=== PATIENT | male | born 1935 | race Caucasian/White ===

== ENCOUNTER 2022-11-11 10:06 | Outpatient (RCR) | payer MEDICARE, SELFPAY ==
[2022-11-11 10:17] VITALS: TEMP 36.2; BMI 19.6
--- NOTE | 2022-11-11 12:11 | HP.PCM_ITS ---
History of Present Illness Date of Service: 11/11/22 Chief Complaint: Right hallux dorsal wound History of Wound: Patient is an 87-year-old male with history of right hallux dorsal wound for last few weeks. Had been following with Dr. Han. He had started him on oral doxycycline 100 mg for 2 weeks and recently extended this antibiotic. States that his right hallux has been red but slowly improving since starting the antibiotic, however there remains thickened eschar overlying the IPJ. He states he is unsure of any injury to the right hallux. States that local wound care was performed consisting of dressing changes to the site. He states he had vascular studies performed at [facility] 3 weeks ago. He currently denies N/V/F/chills. Denies further complaints. [facility] Home Medications amlodipine 10 mg tablet 10 mg PO DAILY 11/11/22 [History Last Taken Unknown] atorvastatin 20 mg tablet 20 mg PO DAILY 11/11/22 [History Last Taken Unknown] doxycycline hyclate 150 mg tablet 150 mg PO BID 11/11/22 [History Last Taken Unknown] glipizide 2.5 mg tablet, extended release 24 hr 2.5 mg PO BID 11/11/22 [History Last Taken Unknown] hydrochlorothiazide 25 mg tablet 25 mg PO DAILY 11/11/22 [History Last Taken Unknown] lisinopril 20 mg tablet 20 mg PO DAILY 11/11/22 [History Last Taken Unknown] verapamil 240 mg tablet,extended release mg PO 11/11/22 [History Last Taken Unknown] Allergy/AdvReac Type Severity Reaction Status Date / Time No Known Allergies Allergy Verified 11/11/22 10:25 ROS Constitutional Constitutional: Denies anorexia, change in weight, chills or fever(s) Eyes Eyes: Denies blurry vision, change in vision or double vision ENT HEENT: Denies dysphagia, nasal congestion or sore throat Cardiovascular Cardiovascular: Denies chest pain, claudication or palpitations Respiratory/Chest Respiratory/Chest: Denies cough, shortness of breath at rest or wheezing Gastrointestinal Gastrointestinal: Denies abdominal pain, constipation, diarrhea, nausea or vomiting Genitourinary Genitourinary: Denies dysuria, hematuria, urinary frequency, urinary hesitancy, urinary incontinence or urinary urgency Musculoskeletal Musculoskeletal: Denies joint pain, joint stiffness or joint swelling Integumentary Integumentary: Denies lesions, pruritus or rash Neurologic Neurologic: Denies dizziness, numbness or seizures Endocrine Endocrinology: Denies cold intolerance or heat intolerance Hematologic/Lymphatic Hematologic/Lymphatic: Denies easy bleeding or easy bruising Vital Signs Vital Signs Vital Signs: 11/11/22 10:17 Temperature 97.1 F L Temperature Source Temporal Weight Weight: 65.771 kg Body Mass Index (BMI) 19.6 Physical Exam Const alert, oriented x3 and no apparent distress General Appearance: cooperative HEENT normocephalic Eyes General Eye: normal appearance of both eyes Neck General: normal visual inspection Lymph Lymphatic: no lymphadenopathy noted and no lymphedema noted Resp normal respiratory effort Cardio regular rate and regular rhythm Extremity no joint enlargement, no calf tenderness and no pedal edema Extremity Narrative: Left lower extremity: DP and PT pulses nonpalpable with capillary fill time greater than 5 seconds to the digits. Absence of hair growth noted. Skin at rophic. Right lower extremity: DP and PT pulses nonpalpable with capillary fill time of 5 seconds to the digits. Absence of hair growth noted. Skin atrophic. Right hallux demonstrates significant erythema to the dorsal hallux extending proximally to the metatarsophalangeal joint. There is thickened eschar overlying the IPJ with some loosening about the margins with yellow fibrotic tissue underlying the eschar. There is pain to palpation of the hallux. Skin no rashes or lesions noted, skin turgor normal and no jaundice Wound Narrative: Right hallux demonstrates significant erythema to the dorsal hallux extending proximally to the metatarsophalangeal joint. There is thickened eschar overlying the IPJ with some loosening about the margins with yellow fibrotic tissue underlying the eschar. There is pain to palpation of the hallux. No purulent drainage noted, no malodor, no palpable fluctuance/bogginess, no v isible abscess formation. Neuro moves all extremities Debridement Note Debridement Note No debridement was completed: No debridement was completed today Post-Debridement Measurements and Additional Note: Post-Debridement Measurements/Treatment AMANDA - Nurse 1 - General Ulcer Assessment Start: 11/11/22 10:17 Freq: Status: Active Protocol: AMANDA.LOWEXT Activity Type Activity Date Activity User E-sign Co-sign Detail Recorded Client Recorded Date Recorded By Document 11/11/22 10:17 LAMONT [id number] 11/11/22 10:24 LAMONT 11/11/22 10:17 WC - Today's Visit Information Type of service Initial Visit Arrival Mode Wheelchair Transfer Assistance Manual Patient Identification Verified (Name & Yes ) Patient Requires Transmission-Based No Precautions Safety Precautions NA Height and Weight Height 6 ft Weight 65.771 kg Weight in Pounds 145.0 lbs Body Mass Index (BMI) 19.6 BMI Classification Normal BSA - Bruna 1.86 Vital Signs Temperature (97.8 F-99.1 F) 97.1 F L Temperature Source Temporal History Since Last Visit- (Skip if this is Patient's initial visit) Left Footwear Regular Shoe Right Footwear Regular Shoe Pain Scale: 0-10 Numeric Is Patient Pain Free? No WC - Nurse 1 - General Ulcer Measurement Start: 11/11/22 10:17 Freq: Status: Active Protocol: Activity Type Activity Date Activity User E-sign Co-sign Detail Recorded Client Recorded Date Recorded By Document 11/11/22 10:17 LAMONT [id number] 11/11/22 10:24 AK 11/11/22 10:17 Wound Center Nurse 1 #1 R hallux -Current Size (cm) - Length 1.8 -Current Size (cm) - Width 1 -Current Size (cm) - Depth 0.1 -Total Square Cm 1.8 -Date of Last Picture (Recall this 11/11/22 field) -Photo Taken Yes -Tunneling No -Undermining/Tunneling No -Circular Undermining No -Change in Wound Grade/Stage No -Exudate Amt None Present -Wound Margin Distinct, Outline Attached -Granulation Amt None Present (0 %) -Granulation Quality N/A -Slough/Fibrin Yes -Necrosis Amt Large (67-100%) -Necrotic Tissue Type Eschar -Structure Exposed N/A -Texture (Ute-wound Skin Appearance) Assessed, Localized Edema -Moisture (Ute-wound Skin Appearance) Assessed,Dry/ Scaly -Color (Ute-wound Skin Appearance) Assessed, Erythema -Temperature (Ute-wound Skin No Abnormality Appearance) (Pt Warm) -Tenderness on Palpation (Ute-wound No Skin Appearance) -Ulcer Cleansing Rinsed/ Irrigated with Saline -Foul Odor after Cleansing No -Anesthetic Used 5% Lidocaine Gel WC - Nurse 3 - General Ulcer D/C NN Start: 11/11/22 10:17 Freq: Status: Active Protocol: Activity Type Activity Date Activity User E-sign Co-sign Detail Recorded Client Recorded Date Recorded By Document 11/11/22 11:26 LAMONT [id number] 11/11/22 11:27 LAMONT 11/11/22 11:26 Wound Care Center Nurse 3 -Ulcer Cleansing Rinsed/ Irrigated with Saline -Foul Odor after Cleansing No -Negative Pressure Wound Therapy N/A -Other Dressing hydrogel today -Primary Dressing Covered/Secured with Dry Gauze, Secured with Tape Pain Scale: 0-10 Numeric Is Patient Pain Free? Yes WC - Visit Discharge Discharge Condition Stable Ambulatory Status Wheelchair Transportation Private Auto Accompanied by grandchildren Medication Reconcilliation completed & Yes provided to patient/care provider Clinical Summary of Care Provided Yes Assessment/Plan Assessment/Plan (1) Type 2 diabetes mellitus without complications: CODE(S): E11.9 - Type 2 diabetes mellitus without complications (2) Type 2 diabetes mellitus with foot ulcer: CODE(S): E11.621 - Type 2 diabetes mellitus with foot ulcer; L97.509 - Non-pressure chronic ulcer of other part of unspecified foot with unspecified severity (3) Ischemic ulcer: CODE(S): L98.499 - Non-pressure chronic ulcer of skin of other sites with unspecified severity (4) Non-pressure chronic ulcer of other part of right foot with unspecified severity: CODE(S): L97.519 - Non-pressure chronic ulcer of other part of right foot with unspecified severity PLAN: Plan Patient seen and evaluated On examination right hallux does demonstrate significant erythema with eschar overlying the IPJ with some fibrotic tissue at the margins and loosening of the eschar. Serosanguineous drainage. Pain to palpation of the hallux. Nonpalpable DP and PT pulses bilateral with sluggish capillary fill time beyond 5 seconds to the digits. Likely has component of vascular disease. He is currently on doxycycline 100 mg twice daily and completed 2-week course. Dr. Han extended antibiotic course prior to visit today in the wound center. I will add Cipro 750 mg twice daily x 14 days. Eschar/wound overlying the dorsal IPJ of the hallux of the right foot measures 1.8 cm x 1.0 cm x 0.1 cm. No debridement performed today due to likely vascular disease. Radiographic imaging performed at [facility] was interpreted by Dr. Han with no osteomyelitis noted 2 weeks ago. Ordered new radiographic imaging to be updated today. He did undergo vascular studies at [facility] 3 weeks ago and interpreted by Dr. Han as dorsalis pedis pulse recorded bilaterally as absent. Posterior tibial pulse is recorded bilaterally is absent. Toe brachial index bilaterally is normal but ankle-brachial has noncompressible arteries. I have requested records from [facility] so that I may evaluate his vascular studies. Pending results referral to vascular may be required prior to intervention. Rx Santyl. Discussed applying Santyl to the eschar site with his grandchildren today with dry sterile dressing. Discussed with them the risk of amputation of the hallux showed infection progress/worsen. They voiced understanding of this today. Currently patient is high risk for amputation of the hallux given current status compounded with diabetes. Discussed signs and symptoms of infection to observe for the following: Continued redness that moves beyond hallux onto the foot and up the leg, purulent drainage, increasing foul odor, or if he experiences fever greater than 101 degree, nausea, vomiting, chills that these are signs of a progressing infe ction and he needs to report to the ED. He and his grandchildren voiced understanding of this. The following work up and care recommendations were made: Dressing: Santyl and dry sterile dressing Wash: Soap and water Tissue growth optimization: Santyl Offload: To ensure no rubbing in shoe gear to the site. Recommend offloading in surgical shoe Vascular: Nonpalpable DP and PT pulses bilateral. Have requested records of his vascular studies from [facility] for review. Edema: No edema present. Infection: There is erythema of the hallux which she states has been persistent since his hospital admission and receiving of IV antibiotics at [facility] and despite taking oral doxycycline for 2 weeks. Likely related to some vascular compromise. Pain: May take [id number] Tylenol for discomfort Host factors: DM type II, likely vascular disease bilateral. I answered all the patient's questions. To return to the wound healing center in 1 week or call sooner if the patient has any questions or concerns.
== END 2022-11-17 23:59 | disposition home or self-care (01) ==
LOC: WC 10:06
PROVIDERS: PCP Family Medicine; Referring Provider Podiatrist Foot & Ankle Surgery; Visit Provider Student in an Organized Health Care Education/Training Program
DX: E11.621 Type 2 diabetes mellitus with foot ulcer (principal); L97.519 Non-pressure chronic ulcer of other part of right foot with unspecified severity; L98.499 Non-pressure chronic ulcer of skin of other sites with unspecified severity; Z79.84 Long term (current) use of oral hypoglycemic drugs; Z79.899 Other long term (current) drug therapy
CPT/HCPCS: 99213; G0463